=== PATIENT | male | born 1965 | race Caucasian/White ===

== ENCOUNTER 2017-09-24 14:24 | Emergency (ER) | payer OTHER ==
[~2017-09-24] VITALS: Ht 188 cm; Wt 117.0 kg
--- NOTE | 2017-09-24 16:07 | RAD ---
3 view right wrist 09/24/2017 CLINICAL INDICATION: Right wrist pain after fall. COMPARISON: None. FINDINGS: 2 mildly displaced ossific densities seen on the oblique and lateral views the dorsal wrist. No scapholunate widening. Distal radius and ulna are intact. Soft tissue swelling at the ulnar aspect of the wrist. IMPRESSION: Findings most suggestive of mildly displaced triquetral fracture. Electronically signed by: Prince Wagoner MD (09/24/2017 4:04 PM) [facility]
[2017-09-24] MEDS ORDERED: HYDR-971 PO (16:25)
[2017-09-24] MEDS ORDERED: IBUP800T19 PO (16:25)
--- NOTE | 2017-09-24 16:26 | PHYS DOC ---
Past History Past Medical History: No Pertinent History Past Surgical History: No Surgical History Smoking: Non-smoker Alcohol Use: None Drug Use: None Adult General Chief Complaint Chief Complaint: WRIST PAIN HPI HPI 52-year-old right-handed male patient state he had accidental fall his backyard and landed on hyperflexed right wrist with having pain and edema of right wrist without other injuries, focal neuro deficit, loss of consciousness. Patient states he took ibuprofen at home and rated his pain moderate and doesn't want pain medication in ER. Patient is up-to-date with tetanus immunization. Review of Systems Review of Systems Constitutional: Denies fever or chills [] Eyes: Denies change in visual acuity, redness, or eye pain [] HENT: Denies nasal congestion or sore throat [] Respiratory: Denies cough or shortness of breath [] Cardiovascular: No additional information not addressed in HPI [] GI: Denies abdominal pain, nausea, vomiting, bloody stools or diarrhea [] : Denies dysuria or hematuria [] Musculoskeletal: Denies back pain, reports joint pain [] Integument: Denies rash or skin lesions [] Neurologic: Denies headache, focal weakness or sensory changes [] Endocrine: Denies polyuria or polydipsia [] All other systems were reviewed and found to be within normal limits, except as documented in this note. Allergies Allergies Allergies Coded Allergies Type Severity Reaction Last Updated Verified No Known Drug Allergies 09/24/17 No Physical Exam Physical Exam Constitutional: Well developed, well nourished, mild distress, non-toxic appearance. [] HENT: Normocephalic, atraumatic Eyes: PERRLA, EOMI, conjunctiva normal, no discharge. [] Neck: Normal range of motion, no tenderness, supple, no stridor. [] Cardiovascular:Heart rate regular rhythm, no murmur [] Lungs & Thorax: Bilateral breath sounds clear to auscultation [] Extremities: Right wrist feet edema and tenderness and limited range of motion without deformity or focal neurovascular deficit Neurologic: Alert and oriented X 3, normal motor function, normal sensory function, no focal deficits noted. [] Psychologic: Affect normal, judgement normal, mood normal. [] Current Patient Data Vital Signs Vital Signs Date Time Temp Pulse Resp B/P (MAP) Pulse Ox O2 Delivery O2 Flow Rate FiO2 09/24/17 14:36 97.8 89 18 98 Room Air EKG EKG [] Radiology/Procedures Radiology/Procedures [][place] [address] IMAGING REPORT Signed PATIENT: JOON SONG ACCOUNT: [id number] : 1965 LOCATION: ER AGE: 52 SEX: M EXAM STATUS: REG ER ORD. PHYSICIAN: LAURENT YATES MD REASON: Injury from fall today, right wrist pain Hx: Carpal tunnel surg PROCEDURE: WRIST 3V RIGHT 3 view right wrist 09/24/2017 CLINICAL INDICATION: Right wrist pain after fall. COMPARISON: None. FINDINGS: 2 mildly displaced ossific densities seen on the oblique and lateral views the dorsal wrist. No scapholunate widening. Distal radius and ulna are intact. Soft tissue swelling at the ulnar aspect of the wrist. IMPRESSION: Findings most suggestive of mildly displaced triquetral fracture. Electronically signed by: Elan Wagoner MD (09/24/2017 4:04 PM) [facility] DICTATED AND SIGNED BY: ELAN WAGONER MD DATE: 09/24/17 1602 CC: ZULAY MARIE; LAURENT YATES MD ~ Course & Med Decision Making Course & Med Decision Making Pertinent Imaging studies reviewed. (See chart for details) Evaluation of patient in ER showed 52-year-old male patient with injury to right wrist triquetral fracture. Posterior wrist splint was applied by [employer] with good cap refill. Patient instructed to follow with orthopedic physician. Alem Disclaimer Alem Disclaimer This electronic medical record was generated, in whole or in part, using a voice recognition dictation system. Departure Departure: Impression: Primary Impression: Fracture of triquetrum of right wrist Disposition: 01 HOME, SELF-CARE (At 1621) Condition: IMPROVED Referrals: ZULAY MARIE (PCP) VIVIEN IRWIN MD Patient Instructions: Wrist Fracture Additional Instructions: Apply ice on affected area Follow up with orthopedic physician in 2 or 3 days Scripts Hydrocodone Bit/Acetaminophen (NORCO 5-325 TABLET) 1 Each Tablet 1 TAB PO PRN Q6HRS PRN for PAIN, #14 TAB 0 Refills Prov: LAUERNT YATES MD 09/24/17 Ibuprofen (IBUPROFEN) 800 Mg Tablet 1 TAB PO TID, #30 TAB Prov: LAURENT YATES MD 09/24/17 LAURENT YATES MD Sep 24, 2017 16:26
[2017-09-24 16:32] VITALS: BP 165/76
== END 2017-09-24 16:41 | disposition home or self-care (01) ==
LOC: ER 14:24
DX: S62.111A Displaced fracture of triquetrum [cuneiform] bone, right wrist, initial encounter for closed fracture (principal); W19.XXXA Unspecified fall, initial encounter; Y93.89 Activity, other specified; Y99.8 Other external cause status; Y92.096 Garden or yard of other non-institutional residence as the place of occurrence of the external cause
CPT/HCPCS: 29125; 73110; 99284

== ENCOUNTER → 2017-12-14 | Outpatient (CLI) | payer OTHER ==
[~2017-12-14] MED LIST: HYDR-971 PO; IBUP800T19 PO
--- NOTE | 2017-12-14 16:12 | RAD ---
EXAM: Right wrist, 3 views. HISTORY: Fracture follow-up. COMPARISON: 09/24/2017 FINDINGS: 3 views of the right wrist are obtained. There are small displaced triquetral fracture fragments along the dorsal aspect of the wrist. The degree of displacement appears decreased compared to the prior study. There is decreased dorsal wrist soft tissue swelling. No new fracture is seen. There is widening of the scapholunate joint space. IMPRESSION: 1. Slight decreased displacement of a small triquetral fracture fragments. 2. Slight widening of the scapholunate joint space, more conspicuous compared to the recent prior study. This may be projectional or due to scapholunate ligament injury. Electronically signed by: Mary Naylor MD (12/14/2017 4:08 PM) [facility]
== END | disposition home or self-care (01) ==
LOC: LAB 15:43
PROVIDERS: ATTEND Orthopaedic Surgery Sports Medicine
DX: S62.101D Fracture of unspecified carpal bone, right wrist, subsequent encounter for fracture with routine healing (principal); X58.XXXD Exposure to other specified factors, subsequent encounter
CPT/HCPCS: 73110